=== PATIENT | female | born 1995 | race Caucasian/White ===

== ENCOUNTER 2016-10-10 15:00 | Outpatient (RCR) | payer OTHER | END 2016-10-13 | disposition home or self-care (01) | LOC: PT 15:00 | PROVIDERS: ATTEND Internal Medicine | DX: M25.511 Pain in right shoulder (principal) ==

== ENCOUNTER 2016-10-24 13:45 | Outpatient (RCR) | payer OTHER | END 2016-11-04 10:58 | disposition home or self-care (01) | LOC: PT 13:45 | PROVIDERS: ATTEND Internal Medicine | DX: M25.511 Pain in right shoulder (principal); X50.0XXA Overexertion from strenuous movement or load, initial encounter; Y93.89 Activity, other specified; Y92.63 Factory as the place of occurrence of the external cause ==